=== PATIENT | female | born 1940 | race Caucasian/White ===

== ENCOUNTER 2017-05-16 18:22 | Emergency (ER) | payer MEDICARE, OTHER ==
[~2017-05-16] VITALS: Ht 152.4 cm; Wt 83.0 kg
--- NOTE | 2017-05-16 19:26 | RAD ---
PQRS Compliance Statement: One or more of the following individualized dose reduction techniques were utilized for this examination: 1. Automated exposure control 2. Adjustment of the mA and/or kV according to patient size 3. Use of iterative reconstruction technique CT HEAD, MAXILLOFACIAL, AND CERVICAL SPINE WITHOUT CONTRAST History: fall facial/head injury Comparison: None. Procedure: Axial images are obtained of the head from the skull base through the vertex without IV contrast. Noncontrast helical CT of the cervical spine was performed. Axial, sagittal, and coronal reconstructions were obtained. Helical CT imaging of the facial bones is performed without IV contrast. Findings: The ventricles and sulci are normal for the patient's age. No mass-effect, midline shift, hemorrhage or obvious acute infarction is identified. Basilar cisterns are patent. Bone windows demonstrate no significant calvarial abnormality. No acute facial bone fracture. Minimal mucosal thickening dependently in the left maxillary sinus. No air-fluid level. Other paranasal sinuses are clear. Ostiomeatal complexes are patent. Bony nasal septum is midline. Patient is edentulous. Mastoid air cells are well aerated. Globes are intact. Post septal orbits are normal. There is moderate right orbit upper preseptal soft tissue swelling and hematoma. There is no evidence of acute fracture or acute malalignment of the cervical spine. The alignment is maintained. There is disc space narrowing and mild degenerative endplate spurring of C4/C5, C5/C6, and C6/C7. The facet joints are intact, mildly hypertrophic. Uncinate process hypertrophy of C5/C6, on the left at C4/C5 and on the right at C6/C7. Cardiac pacer wires are partially seen. Visualized soft tissues of the neck demonstrate no significant abnormalities. The visualized lung apices are clear. IMPRESSION: 1. No acute intracranial abnormality. 2. No acute fracture of the cervical spine. 3. No acute facial bone fracture. 4. There is moderate right orbit preseptal soft tissue swelling and hematoma. Electronically signed by: Alfonso Calvillo MD (05/16/2017 7:23 PM)
[2017-05-16 19:45] VITALS: BP 167/81
[2017-05-16] MEDS ORDERED: ACETAMINOPHEN 500 MG TABLET PO ONE (20:45)
--- NOTE | 2017-05-17 01:36 | ED.ADGEN ---
Past Medical History Past Medical History: Hypertension Past Surgical History: Hysterectomy, Pacemaker Alcohol Use: None Drug Use: None Adult General Chief Complaint Chief Complaint: MECHANICAL FALL HPI HPI Patient is a 76 year old woman, history of hypertension, atrial fibrillation on anticoagulation, who presents emergency Department with a complaint of right facial pain and swelling after a fall. Patient states that she tripped while stepping over a curb and fell striking her right forehead and eye on a concrete pavement. Patient denies any preceding symptoms, denies any headache, any blurred vision, any weakness, numbness, tingling, nausea, vomiting, chest pain, shortness of breath. Denies any previous injuries. She states this occurred about an hour and a half prior to my evaluation. Her tetanus is up-to-date. Review of Systems Review of Systems Constitutional: Denies fever or chills. [] Eyes: Denies change in visual acuity. [] HENT: Denies nasal congestion or sore throat. [] Facial swelling and pain. Respiratory: Denies cough or shortness of breath. [] Cardiovascular: Denies chest pain or edema. [] GI: Denies abdominal pain, nausea, vomiting, bloody stools or diarrhea. [] : Denies dysuria. [] Musculoskeletal: Denies back pain or joint pain. [] Integument: Denies rash. [] Neurologic: Denies headache, focal weakness or sensory changes. [] Endocrine: Denies polyuria or polydipsia. [] Lymphatic: Denies swollen glands. [] Psychiatric: Denies depression or anxiety. [] Current Medications Current Medications Current Medications Medications (Trade) Dose Ordered Sig/[facility] Start Time Stop Time Status Last Admin Dose Admin Acetaminophen (Tylenol) 1,000 mg 1X ONCE 05/16/17 20:45 05/16/17 20:46 DC 05/16/17 20:51 1,000 MG Allergies Allergies Allergies Coded Allergies Type Severity Reaction Last Updated Verified No Known Drug Allergies 05/16/17 No Physical Exam Physical Exam Constitutional: Well developed, well nourished, no acute distress, patient with swelling and ecchymosis noted over the right upper eye. [] HENT: Normocephalic, patient with swelling over the upper eyelid extending the right forehead with ecchymosis, bilateral external ears normal, oropharynx moist , no oral exudates, nose normal. [] No hemotympanum, no septal hematoma, no dental trauma. Eyes: PERRLA, EOMI, conjunctiva normal, no discharge. No evidence of entrapment , full painless range of motion. Patient with swelling upper eyelid extending into the right forehead with ecchymosis. Neck: Normal range of motion, no tenderness, supple, no stridor. [] Cardiovascular:Heart rate regular rhythm, no murmur [] Lungs & Thorax: Bilateral breath sounds clear to auscultation [] Abdomen: Bowel sounds normal, soft, no tenderness, no masses, no pulsatile masses. [] Skin: Warm, dry, no erythema, no rash. [] Back: No tenderness, no CVA tenderness. [] Extremities: No tenderness, no cyanosis, no clubbing, ROM intact, no edema. Ecchymosis noted on the anterior aspect of the right ankle, patient has full painless range of motion. Neurologic: Alert and oriented X 3, normal motor function, normal sensory function, no focal deficits noted. [] Psychologic: Affect normal, judgement normal, mood normal. [] Current Patient Data Vital Signs Vital Signs Date Time Temp Pulse Resp B/P (MAP) Pulse Ox O2 Delivery O2 Flow Rate FiO2 05/16/17 19:45 76 20 167/81 (109) 99 Room Air 05/16/17 18:30 97.4 97.4 EKG EKG ECG: Sinus rhythm, 80 beats minute, no ectopy. As interpreted by me. Radiology/Procedures Radiology/Procedures [][facility] [address] [place] [address] IMAGING REPORT Signed PATIENT: MARGARET LOUISE ACCOUNT: [id number] : 1940 LOCATION: ER AGE: 76 SEX: F EXAM STATUS: PRE ER ORD. PHYSICIAN: FORD BLEDSOE DO REASON: fall/facial/head injury PROCEDURE: CT HEAD AND CERVICAL SPINE [facility] Compliance Statement: One or more of the following individualized dose reduction techniques were utilized for this examination: 1. Automated exposure control 2. Adjustment of the mA and/or kV according to patient size 3. Use of iterative reconstruction technique CT HEAD, MAXILLOFACIAL, AND CERVICAL SPINE WITHOUT CONTRAST History: fall facial/head injury Comparison: None. Procedure: Axial images are obtained of the head from the skull base through the vertex without IV contrast. Noncontrast helical CT of the cervical spine was performed. Axial, sagittal, and coronal reconstructions were obtained. Helical CT imaging of the facial bones is performed without IV contrast. Findings: The ventricles and sulci are normal for the patient's age. No mass-effect, midline shift, hemorrhage or obvious acute infarction is identified. Basilar cisterns are patent. Bone windows demonstrate no significant calvarial abnormality. No acute facial bone fracture. Minimal mucosal thickening dependently in the left maxillary sinus. No air-fluid level. Other paranasal sinuses are clear. Ostiomeatal complexes are patent. Bony nasal septum is midline. Patient is edentulous. Mastoid air cells are well aerated. Globes are intact. Post septal orbits are normal. There is moderate right orbit upper preseptal soft tissue swelling and hematoma. There is no evidence of acute fracture or acute malalignment of the cervical spine. The alignment is maintained. There is disc space narrowing and mild degenerative endplate spurring of C4/C5, C5/C6, and C6/C7. The facet joints are intact, mildly hypertrophic. Uncinate process hypertrophy of C5/C6, on the left at C4/C5 and on the right at C6/C7. Cardiac pacer wires are partially seen. Visualized soft tissues of the neck demonstrate no significant abnormalities. The visualized lung apices are clear. IMPRESSION: 1. No acute intracranial abnormality. 2. No acute fracture of the cervical spine. 3. No acute facial bone fracture. 4. There is moderate right orbit preseptal soft tissue swelling and hematoma. Electronically signed by: Azael Bermudez MD (05/16/2017 7:23 PM) DICTATED and SIGNED BY: AZAEL BERMUDEZ MD DATE: 05/16/171916 CC: FORD BLEDSOE DO ~ Course & Med Decision Making Course & Med Decision Making Pertinent Labs and Imaging studies reviewed. (See chart for details) Patient with hematoma and ecchymosis noted with swelling over the right upper eyelid and forehead, due to age, and conservative distracting injury, with blood thinners, patient received CT of the head, face, and neck after evaluation. Patient was agreeable with this evaluation after discussion at bedside with patient and family. Imaging did not reveal any evidence of concerning findings. Patient states that she is feeling well, and is rated go home. I did discuss with patient the possibility of a delayed bleed, which is unlikely but could occur. Patient is instructed to continue her home medications , to continue to use ice over the swelling, she will be spending the night with her family, who will be checking on her periodically, and she and family return to the emergency department immediately for any concerning symptoms as discussed develop. Patient and family at bedside voiced understanding and agreement with plan as stated. Patient ambulating without difficulty in the emergency department, discharged home with her family the plan as above. Dragon Disclaimer Dragon Disclaimer This electronic medical record was generated, in whole or in part, using a voice recognition dictation system. Departure Impression: Primary Impression: Contusion of head Disposition: 01 HOME, SELF-CARE Condition: IMPROVED FORD BLEDSOE DO May 17, 2017 01:36
== END 2017-05-16 20:55 | disposition home or self-care (01) ==
LOC: ER 18:22
DX: S00.83XA Contusion of other part of head, initial encounter (principal); I10 Essential (primary) hypertension; Z95.0 Presence of cardiac pacemaker; I48.91 Unspecified atrial fibrillation; Z79.01 Long term (current) use of anticoagulants; W01.198A Fall on same level from slipping, tripping and stumbling with subsequent striking against other object, initial encounter; Y93.89 Activity, other specified; Y99.8 Other external cause status; Y92.89 Other specified places as the place of occurrence of the external cause
CPT/HCPCS: 70450; 70486; 72125; 99284-25

== ENCOUNTER 2017-07-25 17:48 | Emergency (ER) | payer MEDICARE, OTHER ==
[~2017-07-25] VITALS: Ht 152.4 cm; Wt 83.0 kg
[2017-07-25 18:04] VITALS: BP 146/70
--- NOTE | 2017-07-25 19:15 | PHYS DOC ---
Past Medical History Past Medical History: Hypertension, Migraines Past Surgical History: Hysterectomy, Pacemaker Alcohol Use: None Drug Use: None Adult General Chief Complaint Chief Complaint: Neck Pain [facility] HPI Patient is a 77 year old female who presents with with a history of migraine headaches and hypertension who presents today with enlarged left cervical lymph node that she noted this afternoon. Patient denies any fever. Denies any coughing or congestion. Review of Systems Review of Systems Constitutional: Denies fever or chills [] Eyes: Denies change in visual acuity, redness, or eye pain [] HENT: Enlarged left cervical lymph node Respiratory: Denies cough or shortness of breath [] Cardiovascular: No additional information not addressed in HPI [] GI: Denies abdominal pain, nausea, vomiting, bloody stools or diarrhea [] : Denies dysuria or hematuria [] Musculoskeletal: Denies back pain or joint pain [] Integument: Denies rash or skin lesions [] Neurologic: Denies headache, focal weakness or sensory changes [] Endocrine: Denies polyuria or polydipsia [] Allergies Allergies Allergies Coded Allergies Type Severity Reaction Last Updated Verified No Known Drug Allergies 05/16/17 No Physical Exam Physical Exam Constitutional: Well developed, well nourished, no acute distress, non-toxic appearance. [] HENT: Normocephalic, atraumatic, bilateral external ears normal, oropharynx moist, no oral exudates, nose normal. [] +1 left cervical lymphadenopathy noted. Eyes: PERRLA, EOMI, conjunctiva normal, no discharge. [] Neck: Normal range of motion, no tenderness, supple, no stridor. [] Cardiovascular:Heart rate regular rhythm, no murmur [] Lungs & Thorax: Bilateral breath sounds clear to auscultation [] Abdomen: Bowel sounds normal, soft, no tenderness, no masses, no pulsatile masses. [] Skin: Warm, dry, no erythema, no rash. [] Back: No tenderness, no CVA tenderness. [] Extremities: No tenderness, no cyanosis, no clubbing, ROM intact, no edema. [] Neurologic: Alert and oriented X 3, normal motor function, normal sensory function, no focal deficits noted. [] Psychologic: Affect normal, judgement normal, mood normal. [] Current Patient Data Vital Signs Vital Signs Date Time Temp Pulse Resp B/P (MAP) Pulse Ox O2 Delivery O2 Flow Rate FiO2 07/25/17 18:04 97.5 92 16 95 Room Air 97.5 EKG EKG [] Radiology/Procedures Radiology/Procedures [] Course & Med Decision Making Course & Med Decision Making Pertinent Labs and Imaging studies reviewed. (See chart for details) Patient is in the ED with an enlarged left cervical lymph node. She has no other symptoms, negative rapid strep. Informed that this is a reactive lymph node. Recommended Tylenol as needed. She cannot take Motrin. Saltwater gargles recommended. Follow-up with primary care doctor next week. Provided return precautions and discharged in stable condition. Dragon Disclaimer Dragon Disclaimer This electronic medical record was generated, in whole or in part, using a voice recognition dictation system. Departure Departure Impression: Primary Impression: Lymphadenopathy, cervical Disposition: HOME, SELF-CARE Condition: STABLE Referrals: UNKNOWN PCP NAME (PCP) follow up with your doctor next week Additional Instructions: You were seen for left enlarged lymph node. This are usually reactive lymph nodes responding to some infection somewhere in your body typically upper respiratory tract. Continue taking Tylenol as needed for pain. Follow-up with your doctor next week. Come back to the ED symptoms worsen. EMILIANO WINTER APRN Jul 25, 2017 19:15
[2017-07-26 07:43] LABS: NEGATIVE OBC STREP NEG; POSITIVE OBC STREP POS
== END 2017-07-25 19:35 | disposition home or self-care (01) ==
LOC: ER 17:48
DX: R59.1 Generalized enlarged lymph nodes (principal); G43.909 Migraine, unspecified, not intractable, without status migrainosus; I10 Essential (primary) hypertension; Z95.0 Presence of cardiac pacemaker
CPT/HCPCS: 87070; 87880; 99284

== ENCOUNTER 2018-12-23 08:11 | Emergency (ER) | payer MEDICARE, OTHER ==
[~2018-12-23] VITALS: Ht 152.4 cm; Wt 82.6 kg
--- NOTE | 2018-12-23 08:25 | PHYS DOC ---
Past Medical History Past Medical History: Hypertension, Migraines Past Surgical History: Hysterectomy, Pacemaker Alcohol Use: None Drug Use: None Adult General Chief Complaint Chief Complaint: LOWER EXT PAIN HPI HPI Patient is a 78 year old female who presents with right back of knee sharp pain that radiates down back of calf. Patient states that this has been going on since August. Painful with movement or bending. Pain 4/10. Review of Systems Review of Systems Constitutional: Denies fever or chills [] Eyes: Denies change in visual acuity, redness, or eye pain [] HENT: Denies nasal congestion or sore throat [] Respiratory: Denies cough or shortness of breath [] Cardiovascular: No additional information not addressed in HPI [] Musculoskeletal: Denies back pain. back of right knee joint pain that radiates down calf [] Integument: Denies rash or skin lesions [] Neurologic: Denies headache, focal weakness or sensory changes [] All other systems were reviewed and found to be within normal limits, except as documented in this note. Current Medications Current Medications Current Medications Medications (Trade) Dose Ordered Sig/[facility] Start Time Stop Time Status Last Admin Dose Admin Acetaminophen/ Hydrocodone Bitart (Lortab 5/325) 1 tab 1X ONCE 12/23/18 08:30 12/23/18 08:31 DC 12/23/18 08:43 1 TAB Allergies Allergies Allergies Coded Allergies Type Severity Reaction Last Updated Verified Penicillins Allergy Intermediate rash 12/23/18 Yes Physical Exam Physical Exam Constitutional: Well developed, well nourished, no acute distress, non-toxic appearance. [] HENT: Normocephalic, atraumatic, bilateral external ears normal, oropharynx moist, no oral exudates, nose normal. [] Eyes: PERRLA, EOMI, conjunctiva normal, no discharge. [] Neck: Normal range of motion, no tenderness, supple, no stridor. [] Cardiovascular:Heart rate regular rhythm, no murmur [] Lungs & Thorax: Bilateral breath sounds clear to auscultation [] Abdomen: Bowel sounds normal, soft, no tenderness, no masses, no pulsatile masses. [] Skin: Warm, dry, no erythema, no rash. [] Back: No tenderness, no CVA tenderness. [] Extremities: No tenderness, no cyanosis, no clubbing, ROM intact, no edema. [] Neurologic: Alert and oriented X 3, normal motor function, normal sensory function, no focal deficits noted. [] Psychologic: Affect normal, judgement normal, mood normal. [] Current Patient Data Vital Signs Vital Signs Date Time Temp Pulse Resp B/P (MAP) Pulse Ox O2 Delivery O2 Flow Rate FiO2 12/23/18 08:43 20 97 Room Air 12/23/18 08:11 97.6 93 157/74 (101) 97.6 EKG EKG [] Radiology/Procedures Radiology/Procedures US Right leg Impressions: [facility] [address] [place] [address] IMAGING REPORT Signed PATIENT: MARGARET LOUISE ACCOUNT: [id number] : 1940 LOCATION: ER AGE: 78 SEX: F EXAM STATUS: PRE ER ORD. PHYSICIAN: SHAHID SALEEM APRN REASON: pain in back of knee with radiation down calf PROCEDURE: VENOUS LOWER EXTREMITY RIGHT Right Lower extremity venous Doppler. 12/23/2018 HISTORY: Right knee pain radiating to the back of the calf COMPARISON: None. FINDINGS: Grayscale, Color and Doppler analysis of the Right Lower extremity deep venous system was performed with serial graded compression and augmentation. The right common femoral, femoral, and popliteal veins are widely patent with normal color Doppler imaging. Limited images of the right calf veins are unremarkable. IMPRESSION: No evidence of DVT in the right lower extremity. Electronically signed by: Denae Person MD (12/23/2018 8:53 AM) [facility] DICTATED and SIGNED BY: DENAE PERSON MD DATE: 12/23/18 0852 [facility] [address] [place], [place] [id number] IMAGING REPORT Signed PATIENT: MARGARET LOUISE ACCOUNT: [id number] : 1940 LOCATION: ER AGE: 78 SEX: F EXAM STATUS: REG ER ORD. PHYSICIAN: SHAHID SALEEM APRN REASON: pain PROCEDURE: KNEE RIGHT 4V Examination: 4 views of the right knee HISTORY: History of right posterior knee pain COMPARISON: None available. FINDINGS: Moderate joint space loss identified in the medial compartment. There is mild joint space loss identified in the lateral, patellofemoral compartments. No significant knee joint effusion identified. IMPRESSION: 1. 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 2. No acute osseous findings. Electronically signed by: Ollie Hood MD (12/23/2018 9:09 AM) [facility] DICTATED and SIGNED BY: OLLIE HOOD MD DATE: 12/23/18905 Course & Med Decision Making Course & Med Decision Making Patient is a 78 year old female who presents with right back of knee sharp pain that radiates down back of calf. Patient states that this has been going on since August. Painful with movement or bending. Pain 4/10. Alert and Oriented. Denies soa, chest pain, calf tenderness, knee tenderness. There is no calf tenderness, back of knee tenderness, edema, redness, streaking, skin color change, or coolness. Pedal pulse is present and strong. Skin is pink, warm and dry. Heart rate regular and without murmur. Lungs clear to auscultation. Patient is currently on Eliquis due to having a pacemaker. No DVT or PE past hx. US shows no acute findings. Xray shows 1. 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 2. No acute osseous findings. Patient to follow up with primary care doctor and take Tylenol for pain. Dragon Disclaimer Dragon Disclaimer This electronic medical record was generated, in whole or in part, using a voice recognition dictation system. Departure Departure Impression: Primary Impression: Knee pain Disposition: HOME, SELF-CARE Condition: STABLE Referrals: UNKNOWN PCP NAME (PCP) Patient Instructions: Arthritis, Degenerative-Brief, Knee Pain Additional Instructions: Follow up with your primary care doctor or the Orthopedic who did your left knee surgery. Take Tylenol for your pain. Also try heat or ice. Scripts Diclofenac Sodium (DICLOFENAC SODIUM) 50 Mg Tablet.dr 25 MG PO BID for 5 Days, #5 TAB 1 Refill Prov: SHAHID SALEEM Capri KAPLAN 12/23/18 Problem Qualifiers Primary Impression: Knee pain Chronicity: chronic Laterality: right Qualified Codes: M25.561 - Pain in right knee; G89.29 - Other chronic pain SHAHID SALEEM APRN Dec 23, 2018 08:25
[2018-12-23] MEDS ORDERED: HYDROcodone/APAP 5/325MG 1 TAB TABLET PO ONE (08:30)
--- NOTE | 2018-12-23 08:58 | RAD ---
Right Lower extremity venous Doppler. 12/23/2018 HISTORY: Right knee pain radiating to the back of the calf COMPARISON: None. FINDINGS: Grayscale, Color and Doppler analysis of the Right Lower extremity deep venous system was performed with serial graded compression and augmentation. The right common femoral, femoral, and popliteal veins are widely patent with normal color Doppler imaging. Limited images of the right calf veins are unremarkable. IMPRESSION: No evidence of DVT in the right lower extremity. Electronically signed by: Nilesh Person MD (12/23/2018 8:53 AM) [facility]
--- NOTE | 2018-12-23 09:14 | RAD ---
Examination: 4 views of the right knee HISTORY: History of right posterior knee pain COMPARISON: None available. FINDINGS: Moderate joint space loss identified in the medial compartment. There is mild joint space loss identified in the lateral, patellofemoral compartments. No significant knee joint effusion identified. IMPRESSION: 1. 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 2. No acute osseous findings. Electronically signed by: Ollie Hood MD (12/23/2018 9:09 AM) [place] [id number]
[2018-12-23] MEDS ORDERED: DICL50TA4 PO ×2 (09:24→09:29)
[2018-12-23 10:14] VITALS: BP 146/76
== END 2018-12-23 10:40 | disposition home or self-care (01) ==
LOC: ER 08:11
DX: M25.561 Pain in right knee (principal); G89.29 Other chronic pain; I10 Essential (primary) hypertension; G43.909 Migraine, unspecified, not intractable, without status migrainosus; Z90.710 Acquired absence of both cervix and uterus; Z95.0 Presence of cardiac pacemaker; Z88.0 Allergy status to penicillin
CPT/HCPCS: 73564; 93971; 99284